=== PATIENT | male | born 1960 | race Two or more races ===

== ENCOUNTER 2024-03-19 07:15 | Day surgery (SDC) | payer OTHER, MEDICAID ==
[2024-03-13 10:34] LABS: Urine Bacteria MANY /hpf (None Seen); Urine Blood Negative /uL (Negative); Urine Clarity Clear (Clear); Urine Color Yellow (Yellow); Urine Mucus FEW (None Seen); Urine Protein, UAD 1+ (Negative); Urine Specific Gravity 1.044 (1.001-1.035); Urine Sperm PRESENT /hpf (None Seen); Urine Urobilinogen 2 mg/dL (Negative); Urine WBC 3 /hpf (0 - 3)
[2024-03-13 10:47] LABS: Basophils # (auto) 0 10 ^3/uL (0-0.2); Basophils % (auto) 0.3 % (0.0-2.0); Eosinophils # (auto) 0.1 10 ^3/uL (0-0.8); Eosinophils % (auto) 1.5 % (0.0-7.0); Hematocrit 48.7 % (41.0-53.0); Hemoglobin 16.2 g/dL (13.5-17.5); Lymphocytes # (auto) 1.7 10 ^3/uL (0.4-5.4); Lymphocytes % (auto) 24.1 % (10.0-50.0); Mean Corpuscular Hemoglobin 28.8 pg (28.0-32.0); Mean Corpuscular Hgb Conc. 33.2 g/dL (32.0-36.0); Mean Corpuscular Volume 86.7 fL (80.0-100.0); Monocytes # (auto) 0.5 10 ^3/uL (0-1.3); Monocytes % (auto) 6.9 % (0.0-12.0); Neutrophils # (auto) 4.6 10 ^3/uL (1.6-8.6); Neutrophils % (auto) 67.2 % (37.0-80.0); Nucleated Red Blood Cells % 0.1 %; Platelet Count (auto) 239 10^3/uL (140-450); Red Blood Cells 5.62 10^6/uL (4.5-5.90); Red Cell Distribution Width 15.8 % (11.8-14.3); White Blood Cell 6.9 10^3/uL (4.4-10.8)
[2024-03-13 11:00] LABS: Prothrombin Time 10.6 sec (9.3-11.8)
[2024-03-13 11:17] LABS: Alanine Aminotransferase 31 U/L (7-40); Alkaline Phosphatase 95 U/L (46-116); Anion Gap 5 (5-15); BUN/Creatinine Ratio 11.6 (10.0-20.0); Blood Urea Nitrogen 14 mg/dL (9-23); Calcium 9.8 mg/dL (8.7-10.4); Carbon Dioxide 28 mmol/L (20-30); Chloride 106 mmol/L (98-107); Glucose 91 mg/dL (74-106); Potassium 4.3 mmol/L (3.5-5.1); Sodium 139 mmol/L (136-145)
[2024-03-13 11:18] LABS: Albumin 4.5 g/dL (3.2-4.8)
[2024-03-13 11:19] LABS: Aspartate Aminotransferase 15 U/L (13-40); Bilirubin, Total 0.4 mg/dL (0.2-1.0); Total Protein 7.5 g/dL (5.7-8.2)
[~2024-03-19] VITALS: Ht 180.3 cm; Wt 72.6 kg
[2024-03-19] MEDS ORDERED: LIDOCAINE W/ EPINEPHRINE 1% 20ML VIAL ONE (07:25)
[2024-03-19] MEDS ORDERED: BUPIVACAINE 0.25% INJ 50ML VIAL ONE (07:26)
[2024-03-19] MEDS ORDERED: ceFAZolin 2 GM/D5W50ml 50 ML IV ONE (07:29)
[2024-03-19] MEDS ORDERED: fentaNYL CITRATE 100 MCG/2 ML VL ONE (07:50)
[2024-03-19] MEDS ORDERED: PROPOFOL 10 MG/ML 20 ML IV ONE (07:50)
[2024-03-19] MEDS ORDERED: ePHEDrine SULFATE 50 MG/ML AMP ONE (08:19)
[2024-03-19] MEDS ORDERED: POVIDONE IODINE 10 % TOPICAL OINT 30GM TOP ONE (08:27)
[2024-03-19] MEDS ORDERED: PHENYLEPHRINE HCL 10 MG/ML VL ONE (08:28)
[2024-03-19] MEDS: LIDOCAINE 1%-Mpf/Epinephrine 1:200,000 30ml VIAL IJ ONE (08:30)
[2024-03-19 08:43] VITALS: PULSE 78; RESP 13; TEMP 98.2; O2SAT 100
[2024-03-19] MEDS ORDERED: ONDANSETRON HCL 4 MG/2 ML VIAL IV ONE (09:00)
[2024-03-19] MEDS ORDERED: MEPERIDINE HCL (25 MG/ML) 1ML VIAL IV PRN (09:00)
[2024-03-19] MEDS ORDERED: HYDROmorphone HCL 2 MG/ML VL/or syr IV PRN (09:00)
[2024-03-19 09:15] VITALS: BP 134/78; PULSE 79; RESP 16; O2SAT 97
== END 2024-03-19 09:25 | disposition home or self-care (01) ==
LOC: SUR 07:15
PROVIDERS: ATTEND Surgery
DX: R22.42 Localized swelling, mass and lump, left lower limb (principal); D17.24 Benign lipomatous neoplasm of skin and subcutaneous tissue of left leg; L91.8 Other hypertrophic disorders of the skin; Z79.899 Other long term (current) drug therapy; Z86.19 Personal history of other infectious and parasitic diseases; Z98.890 Other specified postprocedural states; Z87.891 Personal history of nicotine dependence
CPT/HCPCS: 27337; 36415; 80053; 81001; 85025; 85610; 85730; 88305; J0690; J2371; J2704; J3010; J3490

== ENCOUNTER 2025-03-20 20:39 | Inpatient (IN) | payer OTHER, MEDICAID ==
[~2025-03-20] VITALS: Ht 177.8 cm; Wt 61.2 kg
[2025-03-20 21:44] LABS: Hematocrit 41.7 % (41.0-53.0); Hemoglobin 14.0 g/dL (13.5-17.5); Mean Corpuscular Hemoglobin 29.2 pg (28.0-32.0); Mean Corpuscular Volume 86.9 fL (80.0-100.0); Nucleated Red Blood Cells % 0.0 %
[2025-03-20 21:55] LABS: Chloride 106 mmol/L (98-107); Potassium 4.6 mmol/L (3.5-5.1); Sodium 141 mmol/L (136-145)
[2025-03-20 21:56] LABS: Anion Gap 8 (5-15); Calcium 9.4 mg/dL (8.7-10.4); Carbon Dioxide 27 mmol/L (20-31)
[2025-03-20 22:01] LABS: BUN/Creatinine Ratio 14.7 (10.0-20.0); Blood Urea Nitrogen 16 mg/dL (9-23)
[2025-03-20 22:03] LABS: Glucose 109 mg/dL (74-106)
--- NOTE | 2025-03-20 22:13 | DVH ---
Exam: CT CT AB PEL WO CON-NO ORAL OR IV History: Left-sided nephrostomy tube complication Comparison Study: CT ABD PELVIS WO on DOS: 03/18/25 TECHNIQUE: Multidetector CT of the abdomen and pelvis was performed from lung bases to pubic symphysi s. Imaging was performed without IV contrast. Axial, coronal, and sagittal multiplanar reformats were obtained from the axial data set by the technologist. RADIATION DOSE: CTDI vol 5.11 mGy. DLP 297.78 mGy.cm Findings: Limited evaluation of the solid organs in the absence of IV contrast. Lungs: Presumed surgical clips are seen within the left lower thorax with associated streak artifact. Liver: Unremarkable. Spleen: Unremarkable. Pancreas: Unremarkable. Gallbladder: Decompressed. Adrenals: Unremarkable Kidneys: Atrophic decompressed left kidney with left nephrostomy tube. Right nephrolithiasis. Too sm all to characterize right renal lesion. No hydronephrosis. Pelvic Viscera: Prostatomegaly. Vasculature: Mild atherosclerotic vascular calcifications. Retroperitoneum: Unremarkable. Bowel: No bowel obstruction. No CT evidence of appendicitis. Musculoskeletal: Unremarkable. Soft tissues: Unremarkable Impression: 1. Atrophic decompressed left kidney with left nephrostomy tube, comparison with prior outside imagin g is suggested in assessing interval change in appearance. 2. Incidental findings as detailed.
--- NOTE | 2025-03-20 22:28 | ED.PDOC ---
History of Present Illness HPI Comments This patient is a 64-year-old male who arrives the ED today for evaluation of left-sided nephrostomy tube that was placed at this facility due to kidney stone concern per patient. Patient states he has not been able to come to the facility for removal. Patient states he attempted to come today but was sent to the ED for evaluation. Patient denies any fever nausea or vomiting, but states he has got significant pain at the site. Patient states that his left-sided kidney is nonfunctioning per information from the specialist. Vital signs were stable on arrival. Chief Complaint: Tube Replacement Time Seen by MD: 20:44 Reviewed Notes: Nurses Notes Allergies: Coded Allergies: NO KNOWN ALLERGIES (Unverified , 03/13/24) Home Meds No Active Prescriptions or Reported Meds Information Source: Patient Mode of Arrival: Ambulatory Severity: Moderate Timing: Days Duration: Since onset Prehospital treatment: None Past Medical History PAST MEDICAL HISTORY: Kidney Stones Surgical History: Denies all surgeries Surgical History (Other): Left-sided nephrostomy tube in place Family History Family History: Reviewed,noncontributory to illness, No family hx of Cancer, No family hx of DM, No family hx of Heart yamileth, No family hx of HTN, No family hx ofKidney yamileth, No family hx of Liver yamileth, No family hx of Lung yamileth, No family hx of Stroke Social History Smoker: Non-Smoker Alcohol: Denies ETOH Use Drugs: Denies Drug Use Lives In: Home Constitutional: denies: chills, diaphoresis, fatigue, fever, malaise, sweats, weakness, others EENTM: denies: blurred vision, double vision, ear bleeding, ear discharge, ear drainage, ear pain, ear ringing, eye pain, eye redness, hearing loss, mouth pain, mouth swelling, nasal discharge, nose bleeding, nose congestion, nose pain, photophobia, tearing, throat pain, throat swelling, voice changes, others Respiratory: denies: cough, hemoptysis, orthopnea, SOB at rest, shortness of breath, SOB with excertion, stridor, wheezing, others Cardiovascular: denies: chest pain, dizzy spells, diaphoresis, Dyspnea on exertion, edema, irregular heart beat, left arm pain, lightheadedness, palpitations, PND, syncope, others Gastrointestinal: denies: abdomen distended, abdominal pain, blood streaked bowels, constipated, diarrhea, dysphagia, difficulty swallowing, hematemesis, melena, nausea, poor appetite, poor fluid intake, rectal bleeding, rectal pain, vomiting, others Genitourinary: denies: burning, dysuria, flank pain, frequency, hematuria, incontinence, penile discharge, penile sore, pain, testicle pain, testicle swelling, urgency, others Neurological: denies: dizziness, fainting, headache, left sided numbness, left sided weakness, numbness, paresthesia, pre-existing deficit, right sided numbness, right sided weakness, seizure, speech problems, tingling, tremors, weakness, others Musculoskeletal: reports: others (Left-sided nephrostomy in place); denies: back pain, gout, joint pain, joint swelling, muscle pain, muscle stiffness, neck pain Integumetry: denies: bruises, change in color, change in hair/nails, dryness, laceration, lesions, lumps, rash, wounds, others Allergic/Immunocompromised: denies: Difficulty Healing, Frequent Infections, Hives, Itching, others Hematologic/Lymphatic: denies: anemia, blood clots, easy bleeding, easy br uising, swollen glands, others Endocrine: denies: excessive hunger, excessive sweating, excessive thirst, excessive urination, flushing, intolerance to cold, intolerance to heat, unexplained weight gain, unexplained weight loss, others Psychiatric: denies: anxiety, bipolar disorder, depression, hopeless, panic disorder, schizophrenia, sleepless, suicidal, others Physical Exam General Appearance: Moderate Distress (Due to pain related to his nephrostomy.), Normal HEENT: Normal ENT Inspection, Pharynx Normal, TMs Normal Neck: Full Range of Motion, Non-Tender, Normal, Normal Inspection Respiratory: Chest Non-Tender, Lungs Clear, No Accessory Muscle Use, No Respiratory Distress, Normal Breath Sounds Cardiovascular: No Edema, No JVD, No Murmur, No Gallop, Normal Peripheral Pulses, Regular Rate/Rhythm Breast Exam: Deferred Gastrointestinal: Non Tender, No Pulsatile Mass, Normal Bowel Sounds, Soft, Other (A somewhat dirty and ecchymotic left-sided nephrostomy tube is noted. Can not confirm proper placement. Wound has some bleeding noted.) Genitalia: Deferred Pelvic: Deferred Rectal: Deferred Extremities: No calf tenderness, Normal capillary refill, Normal inspection, Normal range of motion, Non-tender, No pedal edema Neurologic: Alert, No Motor Deficits, Normal Affect, Normal Mood, No Sensory Deficits Cerebellar Function: NOT DONE Reflexes: NOT DONE Skin: Dry, Normal Color, Warm Lymphatic: No Adenopathy Was a procedure done? Was a procedure done?: No Differential Dx Considerations may include: Sepsis, electrolyte abnormality, nephrostomy complication, renal disease X-Ray, Labs, Meds, VS Vital Signs Date Time Temp Pulse Resp B/P (MAP) Pulse Ox O2 Delivery O2 Flow Rate FiO2 03/20/25 20:40 98.8 118 16 124/79 96 98.8 Lab Test 03/20/25 21:34 Range/Units White Blood Count 9.7 4.4-10.8 10^3/uL Red Blood Count 4.80 4.5-5.90 10^6/uL Hemoglobin 14.0 13.5-17.5 g/dL Hematocrit 41.7 41.0-53.0 % Mean Corpuscular Volume 86.9 80.0-100.0 fL Mean Corpuscular Hemoglobin 29.2 28.0-32.0 pg Mean Corpuscular Hemoglobin Concent 33.6 32.0-36.0 g/dL Red Cell Distribution Width 16.0 H 11.8-14.3 % Platelet Count 252 140-450 10^3/uL Mean Platelet Volume 7.0 6.9-10.8 fL Neutrophils (%) (Auto) 79.4 37.0-80.0 % Lymphocytes (%) (Auto) 10.1 10.0-50.0 % Monocytes (%) (Auto) 8.9 0.0-12.0 % Eosinophils (%) (Auto) 1.4 0.0-7.0 % Basophils (%) (Auto) 0.2 0.0-2.0 % Neutrophils # (Auto) 7.7 1.6-8.6 10 ^3/uL Lymphocytes # (Auto) 1.0 0.4-5.4 10 ^3/uL Monocytes # (Auto) 0.9 0-1.3 10 ^3/uL Eosinophils # (Auto) 0.1 0-0.8 10 ^3/uL Basophils # (Auto) 0 0-0.2 10 ^3/uL Nucleated Red Blood Cells 0.0 % Sodium Level 141 136-145 mmol/L Potassium Level 4.6 3.5-5.1 mmol/L Chloride Level 106 98-107 mmol/L Carbon Dioxide Level 27 20-31 mmol/L Anion Gap 8 5-15 Blood Urea Nitrogen 16 9-23 mg/dL Creatinine 1.09 0.700-1.30 mg/dL Glomerular Filtration Rate Calc 75 >90 mL/min BUN/Creatinine Ratio 14.7 10.0-20.0 Serum Glucose 109 H 74-106 mg/dL Calcium Level 9.4 8.7-10.4 mg/dL X-Ray, Labs, Meds, VS Comment All studies performed the ED were evaluated by me personally. Laboratories were unremarkable for any systemic concerns. CT confirmed a atrophic left-sided kidney with nephrostomy placement. Patient will need to be evaluated by Nephrology for tube removal and any future plans related to his nonfunctioning left kidney. Time of 1ST Reevaluation: 22:26 Reevaluation 1ST: Improved Consultation: PCP, Other (Nephrology) Patient Education/Counseling: Diagnosis, Treatment Family Education/Counseling: Diagnosis, Treatment SEPSIS Sepsis Screen Date sepsis recognized/suspect: Mar 20, 2025 Time Sepsis recognized/suspect: 2041 Recent Procedure: Yes On Antibiotic Therapy: No Respiratory Rate >20: No Heart Rate >90: Yes Temp<36 C (96.8 F) or >38.3 C: No SBP <90 or MAP <65 mmHG: No New Acute Mental Status Change: No Is the patient on CPAP, BIPAP,: No Physician Orders Ct Ab Pel Wo Con-No Oral Or Iv (03/20/25 21:27) Vital Signs Date Time Temp Pulse Resp B/P (MAP) Pulse Ox O2 Delivery O2 Flow Rate FiO2 03/20/25 20:40 98.8 118 16 124/79 96 98.8 Laboratory Tests Test 03/20/25 21:34 White Blood Count 9.7 10^3/uL (4.4-10.8) Departure 1 Departure Time of Disposition: 22:27 Impression: Primary Impression: Postoperative complication Additional Impression: Postoperative pain Disposition: ADMITTED INPATIENT Condition: Stable e-Prescriptions No Active Prescriptions or Reported Meds Discharged With: Self Critical Care Note Critical Care Time?: No Stability Stability form required: No Heart Score Heart Score: Heart Score Response (Comments) Value History N/A 0 EKG N/A 0 Age N/A 0 Risk Factors N/A 0 Troponin N/A 0 Total 0 JUAN FRANCISCO COLUNGA PAC Mar 20, 2025 22:28
[2025-03-20] MEDS ORDERED: ONDANSETRON HCL 4 MG/2 ML VIAL IV PRN (23:30)
[2025-03-20] MEDS ORDERED: DOCUSATE SOD 100 MG CAP PO PRN (23:30)
[2025-03-20] MEDS ORDERED: MORPHINE SULFATE INJ 2 MG/ml SYRG IV PRN (23:30)
[2025-03-20] MEDS ORDERED: NITROGLYCERIN 0.4 MG SL TAB SL PRN (23:30)
--- NOTE | 2025-03-20 23:31 | DVHHP2 ---
History of Present Illness Reason for Visit: Postoperative complication History of Present Illness The patient is a 64-year-old male with past medical history of kidney stone who presented to [facility] ED for evaluation of left-sided nephrostomy tube that was placed at this facility due to kidney stones. Patient reports he has not been able to come to the facility for removal, but he attempted to come today but was sent to the ED for evaluation. Patient states that his left-sided kidney is nonfunctioning per information from the specialist. Patient denies any fever nausea or vomiting, but states he has got significant pain at the site. Patient was seen and evaluated in the ED, laboratory data shows WBC 9.7, platelets 252, sodium 141, potassium 4.6, BUN 16, creatinine 1.09, glucose 109, calcium 9.4, blood pressure 124/74, heart rate 118, temperature 98.8 F, O2 saturation 96% on room air. Abdomen/pelvis CT revealing atrophic decompressed left kidney with left nephrotomy tube. Please see medication orders section in the computer. On my assessment, patient denied chest pain, no headache, no dizziness, no diaphoresis, no shortness of breaths, no nausea, no vomiting, no fever, no chills. Patient was admitted for further evaluation and medical management. Past Medical History Kidney Stones Past Surgical History Left-sided nephrostomy tube in place Family History Reviewed, noncontributory to the management of this case. Past Social History The patient lives at home, denies smoking, alcohol or illicit drugs abuse. Review of Systems Constitutional: Yes: Weakness; No: Fever, Chills, Sweats, Malaise, Other Eyes: No: Pain, Vision change, Conjunctivae inflammation, Eyelid inflammation, Other, Redness ENT: No: Ear pain, Ear discharge, Nose pain, Nose discharge, Nose congestion, Mouth pain, Mouth swelling, Throat pain, Throat swelling, Other Respiratory: No: Cough, Dry, Shortness of breath, SOB with excertion, Wheezing, Hemoptysis, Pleuritic Pain, Sputum, Wheezing, Other Cardiovascular: No: Chest Pain, Palpitations, Orthopnea, Paroxysmal Noc. Dyspnea, Edema, Lt Headedness, Other Gastrointestinal: No: Nausea, Vomiting, Abdominal Pain, Diarrhea, Constipation, Melena, Hematochezia, Other Genitourinary: No Dysuria, No Frequency, No Incontinence, No Hematuria, No Retention; Other (Left-sided nephrostomy in place) Musculoskeletal: No: other, neck pain, shoulder pain, arm pain, back pain, hand pain, leg pain, foot pain Skin: No: Rash, Lesions, Jaundice, Bruising, Other Neurological: No: Weakness, Numbness, Incoordination, Change in speech, Confusion, Seizures, Other Allergies: Coded Allergies: NO KNOWN ALLERGIES (Unverified , 03/13/24) Exam Vital Signs Vital Signs Date Time Temp Pulse Resp B/P (MAP) Pulse Ox O2 Delivery O2 Flow Rate FiO2 03/20/25 20:40 98.8 118 16 124/79 96 98.8 General Appearance: Alert, Oriented X3, Cooperative, No acute distress HEENT: Atraumatic, PERRLA, EOMI, Mucous membr. moist/pink Respiratory: Normal air movement Cardiovascular: Regular rate, Normal S1, Normal S2, No murmurs Abdominal: Normal bowel sounds, Soft, No tenderness, No hepatospenomegaly, No masses Extremities: No clubbing, No cyanosis, No edema, Normal pulses, No tenderness/swelling Skin: No rashes, No breakdown, No significant lesion Neuro: Normal speech, Normal tone, Sensation intact, Cranial nerves 3-12 NL, Reflexes 2+, Other (Generalized weakness) Psych/Mental Status: Mental status NL, Mood NL Labs/Xrays Labs Test 03/20/25 21:34 Range/Units White Blood Count 9.7 4.4-10.8 10^3/uL Red Blood Count 4.80 4.5-5.90 10^6/uL Hemoglobin 14.0 13.5-17.5 g/dL Hematocrit 41.7 41.0-53.0 % Mean Corpuscular Volume 86.9 80.0-100.0 fL Mean Corpuscular Hemoglobin 29.2 28.0-32.0 pg Mean Corpuscular Hemoglobin Concent 33.6 32.0-36.0 g/dL Red Cell Distribution Width 16.0 H 11.8-14.3 % Platelet Count 252 140-450 10^3/uL Mean Platelet Volume 7.0 6.9-10.8 fL Neutrophils (%) (Auto) 79.4 37.0-80.0 % Lymphocytes (%) (Auto) 10.1 10.0-50.0 % Monocytes (%) (Auto) 8.9 0.0-12.0 % Eosinophils (%) (Auto) 1.4 0.0-7.0 % Basophils (%) (Auto) 0.2 0.0-2.0 % Neutrophils # (Auto) 7.7 1.6-8.6 10 ^3/uL Lymphocytes # (Auto) 1.0 0.4-5.4 10 ^3/uL Monocytes # (Auto) 0.9 0-1.3 10 ^3/uL Eosinophils # (Auto) 0.1 0-0.8 10 ^3/uL Basophils # (Auto) 0 0-0.2 10 ^3/uL Nucleated Red Blood Cells 0.0 % Sodium Level 141 136-145 mmol/L Potassium Level 4.6 3.5-5.1 mmol/L Chloride Level 106 98-107 mmol/L Carbon Dioxide Level 27 20-31 mmol/L Anion Gap 8 5-15 Blood Urea Nitrogen 16 9-23 mg/dL Creatinine 1.09 0.700-1.30 mg/dL Glomerular Filtration Rate Calc 75 >90 mL/min BUN/Creatinine Ratio 14.7 10.0-20.0 Serum Glucose 109 H 74-106 mg/dL Calcium Level 9.4 8.7-10.4 mg/dL PATIENT: ANDREA BYRD ACCT: [id number] UNIT: [id number] : 1960 LOC: ER ROOM / BED: / AGE / SEX: 64 / M ADM STATUS: REG ER SERVICE 26 ORDERING PHYSICIAN: JUAN FRANCISCO COLUNGA PAC PROCEDURE(s): ABPL - CT AB PEL WO CON-NO ORAL OR IV REASON: Left-sided nephrostomy tube complication ORDER NUMBER(s): [id number], ACCESSION NUMBER(s): [id number] Exam: CT CT AB PEL WO CON-NO ORAL OR IV History: Left-sided nephrostomy tube complication Comparison Study: CT ABD PELVIS WO on DOS: 03/18/25 TECHNIQUE: Multidetector CT of the abdomen and pelvis was performed from lung bases to pubic symphysis. Imaging was performed without IV contrast. Axial, c oronal, and sagittal multiplanar reformats were obtained from the axial data set by the technologist. RADIATION DOSE: CTDI vol 5.11 mGy. DLP 297.78 mGy.cm Findings: Limited evaluation of the solid organs in the absence of IV contrast. Lungs: Presumed surgical clips are seen within the left lower thorax with associated streak artifact. Liver: Unremarkable. Spleen: Unremarkable. Pancreas: Unremarkable. Gallbladder: Decompressed. Adrenals: Unremarkable Kidneys: Atrophic decompressed left kidney with left nephrostomy tube. Right nephrolithiasis. Too small to characterize right renal lesion. No hydronephrosis. Pelvic Viscera: Prostatomegaly. Vasculature: Mild atherosclerotic vascular calcifications. Retroperitoneum: Unremarkable. Bowel: No bowel obstruction. No CT evidence of appendicitis. Musculoskeletal: Unremarkable. Soft tissues: Unremarkable Impression: 1. Atrophic decompressed left kidney with left nephrostomy tube, comparison with prior outside imaging is suggested in assessing interval change in appearance. 2. Incidental findings as detailed. SEPSIS Sepsis Screen Date sepsis recognized/suspect: Mar 20, 2025 Time Sepsis recognized/suspect: 2041 Recent Procedure: Yes On Antibiotic Therapy: No Respiratory Rate >20: No Heart Rate >90: Yes Temp<36 C (96.8 F) or >38.3 C: No SBP <90 or MAP <65 mmHG: No New Acute Mental Status Change: No Is the patient on CPAP, BIPAP,: No Physician Orders Ct Ab Pel Wo Con-No Oral Or Iv (03/20/25 21:27) Admit (03/20/25 23:26) Allergies (03/20/25 23:) Code Status (03/20/25:26) Sodium Chloride Lock (Saline Lock Ns) (03/21/25 06:00) Oxygen Per Hour (03/20/25 23:26) Hydrocodone-Acet 5/325mg Tab ([place] 5/32 (03/20/25 23:30) Ondansetron Hcl (Zofran) (03/20/25 23:30) Docusate Sodium Capsule (Colace Capsule) (03/20/25 23:30) Complete Blood Count (03/21/25 04:00) Comprehensive Metabolic Panel (03/21/25 04:00) Cardiac Diet-2gna,Lofat,Lochol (03/21/25 Breakfast) Condition: Serious (03/20/25 23:26) Acetaminophen Tablet (Tylenol Tablet) (03/20/25 23:30) Bedrest With Bathroom Privileg (03/20/25 23:26) Sequential Compression Device (03/20/25 ) Nitroglycerin Sublingual (Ntrostat Subli (03/20/25 23:30) Morphine Sulfate Injection (03/20/25 23:30) Notify Of Changes From Base (03/20/25 23:26) Emergency Dysrhythmia Protocol (03/20/25 23:26) Oxygen By Nasal Cannula (03/20/25 23:26) Vital Signs Date Time Temp Pulse Resp B/P (MAP) Pulse Ox O2 Delivery O2 Flow Rate FiO2 03/20/25 20:40 98.8 118 16 124/79 96 98.8 Laboratory Tests Test 03/20/25 21:34 White Blood Count 9.7 10^3/uL (4.4-10.8) Assessment/Plan Assessment/Plan Atrophic kidney Postoperative pain Postoperative complication Plan 1. Admit to med surge unit 2. Breathing treatment 3. Pain control management 4. Management of fluids and electrolytes 5. Consultation for Nephrology 6. Diagnostic tests abdomen/pelvis CT 7. DVT prophylaxis-on SCDs 8. Repeat labs CBC, CMP in a.m. 9. Continue with current medical management 10. Treatment plan discussed with patient and RN. Patient verbalized understanding. Plan discussed with: Patient, Other (RN) My Orders Orders - MORENO SALINAS DNP Procedure Category Date Status Time Admit ADMIT 03/20/25 Verified 23:26 Allergies JAIMEE 03/20/25 Verified 23:26 Code Status CODE 03/20/25 Verified 23:26 Sodium Chloride Lock PHA 03/21/25 Verified (Saline Lock Ns) 06:00 Oxygen Per Hour RT 03/20/25 Verified 23:26 Hydrocodone-Acet PHA 03/20/25 Verified 5/325mg Tab ([place] 23:30 Ondansetron Hcl PHA 03/20/25 Verified (Zofran) 23:30 Docusate Sodium PHA 03/20/25 Verified Capsule (Colace 23:30 Complete Blood Count LAB 03/21/25 Verified 04:00 Comprehensive LAB 03/21/25 Verified Metabolic Panel 04:00 Cardiac DIET 03/21/25 Verified Diet-2gna,Lofat,Lochol Breakfast Condition: Serious JAIMEE 03/20/25 Verified 23:26 Acetaminophen Tablet PHA 03/20/25 Verified (Tylenol Tablet) 23:30 Bedrest With Bathroom [facility] 03/20/25 Verified Privileg 23:26 Sequential [facility] 03/20/25 Verified Compression Device Nitroglycerin [facility] 03/20/25 Verified Sublingual (Ntrostat 23:30 Morphine Sulfate [facility] 03/20/25 Verified Injection 23:30 Notify Md Of Changes [facility] 03/20/25 Verified From Base 23:26 Emergency Dysrhythmia [facility] 03/20/25 Verified Protocol 23:26 Oxygen By Nasal RT 03/20/25 Verified Cannula 23:26 Problem List: (1) Atrophic kidney (2) Postoperative pain (3) Postoperative complication Date of Service: Mar 20, 2025 Billing Provider: MORENO SALINAS DNP Common Visit Codes: [id number] INP/OBS CARE (HIGH) MORENO SALINAS DNP Mar 20, 2025 23:31
[2025-03-21] VITALS (8 sets, daily range): BP systolic 108–136; BP diastolic 65–85; PULSE 72–113; RESP 16–22; TEMP 97.9–100.5; O2SAT 94–98
[2025-03-21] MEDS: MORPHINE SULFATE 4 MG/ML SYR/VIAL IV ONE (02:45)
[2025-03-21] MEDS: SODIUM CHLOR 0.9% PF (SALINE LOCK) 10ML VIAL/SYR IV SCH (05:38)
[2025-03-21 06:18] LABS: COVID19 ANTIGEN SOFIA FIA POSITIVE (NEGATIVE)
[2025-03-21] MEDS: HYDROcodone-ACET 5/325MG TAB PO PRN (07:08)
[2025-03-21 07:46] LABS: Hematocrit 40.3 % (41.0-53.0); Hemoglobin 13.7 g/dL (13.5-17.5); Mean Corpuscular Hemoglobin 29.3 pg (28.0-32.0); Mean Corpuscular Volume 86.3 fL (80.0-100.0); Nucleated Red Blood Cells % 0.1 %
[2025-03-21 08:07] LABS: Albumin 4.3 g/dL (3.2-4.8); Alkaline Phosphatase 105 U/L (46-116); Anion Gap 9 (5-15); BUN/Creatinine Ratio 13.1 (10.0-20.0); Blood Urea Nitrogen 13 mg/dL (9-23); Calcium 9.9 mg/dL (8.7-10.4); Carbon Dioxide 28 mmol/L (20-31); Chloride 102 mmol/L (98-107); Glucose 94 mg/dL (74-106); Potassium 4.2 mmol/L (3.5-5.1); Sodium 139 mmol/L (136-145); Total Protein 7.3 g/dL (5.7-8.2)
[2025-03-21 08:08] LABS: Bilirubin, Total 0.6 mg/dL (0.2-1.0)
[2025-03-21 08:13] LABS: Alanine Aminotransferase 41 U/L (7-40)
--- NOTE | 2025-03-21 12:31 | DVHPN2 ---
Reviewed: Care Plan, H&P, Labs, Medications, Previous Orders, Radiology Changes from previous H/P or p: No Changes Eyes: No Pain, No Vision change, No Conjunctivae inflammation, No Eyelid inflammation, No Other, No Redness ENT: No Ear pain, No Ear discharge, No Nose pain, No Nose discharge, No Nose congestion, No Mouth pain, No Mouth swelling, No Throat pain, No Throat swelling, No Other Cardiovascular: No Chest Pain, No Palpitations, No Orthopnea, No Paroxysmal Noc. Dyspnea, No Edema, No Lt Headedness, No Other Respiratory: No Cough, No Dry, No Shortness of breath, No SOB with excertion, No Wheezing, No Hemoptysis, No Pleuritic Pain, No Sputum, No Other Gastrointestinal: No Nausea, No Vomiting, No Abdominal Pain, No Diarrhea, No Constipation, No Melena, No Hematochezia, No Other Genitourinary: No Dysuria, No Frequency, No Incontinence, No Hematuria, No Retention; Other (Left-sided nephrostomy in place) Musculoskeletal: No other, No neck pain, No shoulder pain, No arm pain, No back pain, No hand pain, No leg pain, No foot pain Skin: No Rash, No Lesions, No Jaundice, No Bruising, No Other Objective Vitals Vital Signs Date Time Temp Pulse Resp B/P (MAP) Pulse Ox O2 Delivery O2 Flow Rate FiO2 03/21/25 09:00 100.1 104 16 117/77 (90) 95 100.1 03/21/25 03:33 Room Air* 0 21 Intake/Output Intake and Output 03/21/25 07:00 Intake Total 240 ml Output Total 50 ml Balance 190 ml Intake Oral 240 ml Output Urine Total 50 ml Medications Current Medications Medications Dose Ordered Sig/Lionel Route Start Time Stop Time Status Last Admin Dose Admin Sodium Chloride 10 ml Q8HR IV 03/21/25 06:00 03/21/25 05:38 10 ML Acetaminophen/ Hydrocodone Bitart 1 tab Q4HP PRN PO 03/20/25 23:30 03/21/25 07:08 1 TAB Ondansetron HCl 4 mg Q4HP PRN IV 03/20/25 23:30 Docusate Sodium 100 mg BIDPRN PRN PO 03/20/25 23:30 Acetaminophen 650 mg Q6HP PRN PO 03/20/25 23:30 Nitroglycerin 0.4 mg Q5MINP PRN SL 03/20/25 23:30 Morphine Sulfate 2 mg Q30M PRN IV 03/20/25 23:30 Laboratory Results Laboratory Tests 03/21/25 06:58 Chemistry Test 03/20/25 21:34 03/21/25 06:58 Calcium Level 9.4 mg/dL (8.7-10.4) 9.9 mg/dL (8.7-10.4) Albumin 4.3 g/dL (3.2-4.8) Total Protein 7.3 g/dL (5.7-8.2) LFT Test 03/21/25 06:58 Alanine Aminotransferase (ALT) 41 U/L (7-40) H Alkaline Phosphatase 105 U/L (46-116) Aspartate Amino Transferase (AST) 25 U/L (13-40) Total Bilirubin 0.6 mg/dL (0.2-1.0) Labs and/or images reviewed: Labs reviewed by me, Image(s) reviewed by me Assessment/Plan Assessment/Plan Atrophic left kidney Postoperative pain Postoperative complication Status post left nephrostomy tube Possible infection at the nephrostomy tube placement site: Urology consult by Dr. Mcmillan Possible UTI: Urine cultures Rocephin Plan discussed with: Patient Date of Service: Mar 21, 2025 Billing Provider: GALE FAJARDO MD Common Visit Codes: [id number] INP/OBS CARE(HIGH) GALE FAJARDO MD Mar 21, 2025 12:31
[2025-03-21 13:59] LABS: Urine Protein, UAD 2+ (Negative); Urine WBC Clumps PRESENT /hpf (None Seen)
[2025-03-21] MEDS: STERILE WATER 10 ML ONE (16:12)
[2025-03-22 05:00] VITALS: BP 108/67; PULSE 98; RESP 18; TEMP 98.4; O2SAT 95
[2025-03-22 08:00] VITALS: PULSE 98; RESP 18; O2SAT 95
[2025-03-22 08:04] LABS: COVID19 ANTIGEN SOFIA FIA NEGATIVE (NEGATIVE)
--- NOTE | 2025-03-22 08:10 | DVHPN2 ---
Reviewed: Care Plan, H&P, Labs, Medications, Previous Orders, Radiology Changes from previous H/P or p: No Changes Eyes: No Pain, No Vision change, No Conjunctivae inflammation, No Eyelid inflammation, No Other, No Redness ENT: No Ear pain, No Ear discharge, No Nose pain, No Nose discharge, No Nose congestion, No Mouth pain, No Mouth swelling, No Throat pain, No Throat swelling, No Other Cardiovascular: No Chest Pain, No Palpitations, No Orthopnea, No Paroxysmal Noc. Dyspnea, No Edema, No Lt Headedness, No Other Respiratory: No Cough, No Dry, No Shortness of breath, No SOB with excertion, No Wheezing, No Hemoptysis, No Pleuritic Pain, No Sputum, No Other Gastrointestinal: No Nausea, No Vomiting, No Abdominal Pain, No Diarrhea, No Constipation, No Melena, No Hematochezia, No Other Genitourinary: No Dysuria, No Frequency, No Incontinence, No Hematuria, No Retention; Other (Left-sided nephrostomy in place) Musculoskeletal: No other, No neck pain, No shoulder pain, No arm pain, No back pain, No hand pain, No leg pain, No foot pain Skin: No Rash, No Lesions, No Jaundice, No Bruising, No Other Objective Vitals Vital Signs Date Time Temp Pulse Resp B/P (MAP) Pulse Ox O2 Delivery O2 Flow Rate FiO2 03/22/25 05:00 98.4 98 18 108/67 (81) 95 98.4 03/21/25 20:00 Room Air* 0 21 Intake/Output Intake and Output 03/22/25 07:00 Intake Total 1900 ml Output Total 1000 ml Balance 900 ml Intake Oral 1900 ml Output Urine Total 1000 ml # Voids 2 Medications Current Medications Medications Dose Ordered Sig/Lionel Route Start Time Stop Time Status Last Admin Dose Admin Sodium Chloride 10 ml Q8HR IV 03/21/25 06:00 03/22/25 05:21 10 ML Acetaminophen/ Hydrocodone Bitart 1 tab Q4HP PRN PO 03/20/25 23:30 03/22/25 03:52 1 TAB Ondansetron HCl 4 mg Q4HP PRN IV 03/20/25 23:30 Docusate Sodium 100 mg BIDPRN PRN PO 03/20/25 23:30 Acetaminophen 650 mg Q6HP PRN PO 03/20/25 23:30 Nitroglycerin 0.4 mg Q5MINP PRN SL 03/20/25 23:30 Morphine Sulfate 2 mg Q30M PRN IV 03/20/25 23:30 Ceftriaxone Sodium 50 ml @ 100 mls/hr DAILY@09 IV 03/22/25 09:00 Laboratory Results Laboratory Tests 03/21/25 06:58 Urinalysis Test 03/21/25 13:13 Urine Color Brown (Yellow) H Urine Clarity Ex.turbid (Clear) Urine pH 7.5 (5.0-9.0) Urine Specific [place] 1.029 (1.001-1.035) Urine Protein 2+ (Negative) H Urine Ketones Negative (Negative) Urine Blood 3+ /uL (Negative) H Urine Nitrite Negative (Negative) Urine Bilirubin Negative (Negative) Urine Urobilinogen Normal mg/dL (Negative) Urine Leukocyte Esterase 2+ /uL (Negative) Urine RBC 1914 /hpf (0 - 3) Urine WBC Clumps Present /hpf (None Seen) Urine Microscopic WBC 767 /HPF (0-3) H Urine Squamous Epithelial Cells Few /hpf (<5) Urine Bacteria None seen /hpf (None Seen) Urine Mucus Few (None Seen) Urine Glucose Normal mg/dL (Normal) Labs and/or images reviewed: Labs reviewed by me, Image(s) reviewed by me Assessment/Plan Assessment/Plan Atrophic left kidney Status post left nephrostomy tube Possible infection at the nephrostomy tube placement site: Urology consult by Dr. Garcia Possible UTI: Urine cultures, continue Rocephin Plan discussed with: Patient My Orders Orders - GALE FAJARDO MD Procedure Category Date Status Time Urine Bacterial ZULEIKA 03/21/25 In Process Culture 12:31 Ceftriaxone 1gm/50ml PHA 03/22/25 In Process (Rocephin) 09:00 * Urology Consult CONS 03/21/25 Transmitted 12:54 Date of Service: Mar 22, 2025 Billing Provider: GALE FAJARDO MD Common Visit Codes: [id number] INP/OBS CARE(HIGH) GALE FAJARDO MD Mar 22, 2025 08:10
[2025-03-22 09:04] VITALS: BP 103/64; PULSE 92; RESP 16; TEMP 97.6; O2SAT 97
[2025-03-22 12:30] VITALS: BP 105/64; PULSE 87; RESP 16; O2SAT 97
[2025-03-22 16:59] VITALS: BP 104/63; PULSE 85; RESP 16; TEMP 97.8; O2SAT 98
[2025-03-22 21:00] VITALS: BP 93/60; PULSE 88; RESP 15; TEMP 97.6; O2SAT 96
[2025-03-22] MEDS: ACETAMINOPHEN 325 MG TAB PO PRN (22:01)
[2025-03-23] VITALS (8 sets, daily range): BP systolic 100–113; BP diastolic 60–80; PULSE 69–84; RESP 17–19; TEMP 97.6–98.3; O2SAT 95–98
--- NOTE | 2025-03-23 09:45 | DVHPN2 ---
Reviewed: Care Plan, H&P, Labs, Medications, Previous Orders, Radiology Changes from previous H/P or p: No Changes Eyes: No Pain, No Vision change, No Conjunctivae inflammation, No Eyelid inflammation, No Other, No Redness ENT: No Ear pain, No Ear discharge, No Nose pain, No Nose discharge, No Nose congestion, No Mouth pain, No Mouth swelling, No Throat pain, No Throat swelling, No Other Cardiovascular: No Chest Pain, No Palpitations, No Orthopnea, No Paroxysmal Noc. Dyspnea, No Edema, No Lt Headedness, No Other Respiratory: No Cough, No Dry, No Shortness of breath, No SOB with excertion, No Wheezing, No Hemoptysis, No Pleuritic Pain, No Sputum, No Other Gastrointestinal: No Nausea, No Vomiting, No Abdominal Pain, No Diarrhea, No Constipation, No Melena, No Hematochezia, No Other Genitourinary: No Dysuria, No Frequency, No Incontinence, No Hematuria, No Retention; Other (Left-sided nephrostomy in place) Musculoskeletal: No other, No neck pain, No shoulder pain, No arm pain, No back pain, No hand pain, No leg pain, No foot pain Skin: No Rash, No Lesions, No Jaundice, No Bruising, No Other Objective Vitals Vital Signs Date Time Temp Pulse Resp B/P (MAP) Pulse Ox O2 Delivery O2 Flow Rate FiO2 03/23/25 08:33 98.3 72 17 106/80 (89) 96 98.3 03/22/25 20:00 Room Air* 0 21 Intake/Output Intake and Output 03/23/25 07:00 Intake Total 1940 ml Balance 1940 ml Intake Oral 1840 ml IV Total 100 ml # Voids 7 # Bowel Movements 1 Medications Current Medications Medications Dose Ordered Sig/Lionel Route Start Time Stop Time Status Last Admin Dose Admin Sodium Chloride 10 ml Q8HR IV 03/21/25 06:00 03/23/25 06:01 10 ML Acetaminophen/ Hydrocodone Bitart 1 tab Q4HP PRN PO 03/20/25 23:30 03/23/25 06:01 1 TAB Ondansetron HCl 4 mg Q4HP PRN IV 03/20/25 23:30 Docusate Sodium 100 mg BIDPRN PRN PO 03/20/25 23:30 Acetaminophen 650 mg Q6HP PRN PO 03/20/25 23:30 03/23/25 04:16 650 MG Nitroglycerin 0.4 mg Q5MINP PRN SL 03/20/25 23:30 Morphine Sulfate 2 mg Q30M PRN IV 03/20/25 23:30 Ceftriaxone Sodium 50 ml @ 100 mls/hr DAILY@09 IV 03/22/25 09:00 03/22/25 09:53 100 MLS/HR Laboratory Results Laboratory Tests 03/21/25 06:58 Urinalysis Test 03/21/25 13:13 Urine Color Brown (Yellow) H Urine Clarity Ex.turbid (Clear) Urine pH 7.5 (5.0-9.0) Urine Specific [place] 1.029 (1.001-1.035) Urine Protein 2+ (Negative) H Urine Ketones Negative (Negative) Urine Blood 3+ /uL (Negative) H Urine Nitrite Negative (Negative) Urine Bilirubin Negative (Negative) Urine Urobilinogen Normal mg/dL (Negative) Urine Leukocyte Esterase 2+ /uL (Negative) Urine RBC 1914 /hpf (0 - 3) Urine WBC Clumps Present /hpf (None Seen) Urine Microscopic WBC 767 /HPF (0-3) H Urine Squamous Epithelial Cells Few /hpf (<5) Urine Bacteria None seen /hpf (None Seen) Urine Mucus Few (None Seen) Urine Glucose Normal mg/dL (Normal) Microbiology Microbiology Date/Time Source Procedure Growth Status 03/21/25 13:13 Voided Urine Urine Culture - Final Complete Labs and/or images reviewed: Labs reviewed by me, Image(s) reviewed by me Assessment/Plan Assessment/Plan Atrophic left kidney Status post left nephrostomy tube Possible infection at the nephrostomy tube placement site: Urology consult by Dr. Hipolito castillo, Dr. Garcia could not see the patient on the weekend. Possible UTI: Urine cultures, continue Rocephin Plan discussed with: Patient My Orders Orders - GALE FAJARDO MD Procedure Category Date Status Time * Urology Consult CONS 03/23/25 Verified 09:37 Date of Service: Mar 23, 2025 Billing Provider: GALE FAJARDO MD Common Visit Codes: [id number] INP/OBS CARE(HIGH) GALE FAJARDO MD Mar 23, 2025 09:45
--- NOTE | 2025-03-23 12:19 | DVH ---
XY ANTEGRADE NEPHROSTOGRAM HISTORY: Possible blocked nephrostomy tube COMPARISON: None PROCEDURE: A road worker film was obtained prior to the procedure. For the purposes of performing a tube ch luciano, Omnipaque was administered through the left nephrostomy tube and sequential images were obtained via fluoroscopy. Total fluoroscopy time was 0.5 minutes. FINDINGS: The initial road worker film revealed left nephrostomy tube in place. The contrast injected through the per cutaneous nephrostomy tube is seen entering an amorphous and collapsed renal collecting system that a ppears confined to a renoform shape. IMPRESSION: Antegrade nephrostogram shows an amorphous and collapsed renal collecting system that appears confine d to a renoform shape. Contrast not seen going down ureter. Return of fluid was seen with gentle aspi ration. This could be a nonfunctional kidney, recommend nuclear medicine lasix renogram.
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
[2025-03-23] MEDS: HYDROcodone-ACET 5/325MG TAB ONE (22:57)
[2025-03-24 01:00] VITALS: BP 114/79; PULSE 91; RESP 18; TEMP 97.8; O2SAT 96
[2025-03-24 05:00] VITALS: BP 106/62; PULSE 71; RESP 17; TEMP 97.6; O2SAT 97
[2025-03-24] MEDS: IOHEXOL 300 MG/ML 100ML BOTTLE IJ ONE (07:20)
[2025-03-24 08:36] VITALS: BP 104/70; PULSE 89; RESP 17; TEMP 97.9; O2SAT 96
[2025-03-24] MEDS ORDERED: TRAM-626 PO (09:33)
--- NOTE | 2025-03-24 09:39 | DVHDS2 ---
Discharge Summary Date of Admission Mar 20, 2025 at 23:26 Date of Discharge: Mar 24, 2025 Admitting Diagnosis Possible in bacterial left nephrostomy tube site Wounds: None Labs/Diagnostic Data: Laboratory Results Test 03/22/25 03:42 03/21/25 13:13 03/21/25 06:58 SARS-CoV-2 Antigen (Rapid) Negative (NEGATIVE) Urine Color Brown (Yellow) Urine Clarity Ex.turbid (Clear) Urine pH 7.5 (5.0-9.0) Urine Specific [place] 1.029 (1.001-1.035) Urine Protein 2+ (Negative) Urine Ketones Negative (Negative) Urine Blood 3+ /uL (Negative) Urine Nitrite Negative (Negative) Urine Bilirubin Negative (Negative) Urine Urobilinogen Normal mg/dL (Negative) Urine Leukocyte Esterase 2+ /uL (Negative) Urine RBC 1914 /hpf (0 - 3) Urine WBC Clumps Present /hpf (None Seen) Urine Microscopic WBC 767 /HPF (0-3) Urine Squamous Epithelial Cells Few /hpf (<5) Urine Bacteria None seen /hpf (None Seen) Urine Mucus Few (None Seen) Urine Glucose Normal mg/dL (Normal) White Blood Count 7.8 10^3/uL (4.4-10.8) Red Blood Count 4.67 10^6/uL (4.5-5.90) Hemoglobin 13.7 g/dL (13.5-17.5) Hematocrit 40.3 % (41.0-53.0) Mean Corpuscular Volume 86.3 fL (80.0-100.0) Mean Corpuscular Hemoglobin 29.3 pg (28.0-32.0) Mean Corpuscular Hemoglobin Concent 34.0 g/dL (32.0-36.0) Red Cell Distribution Width 15.7 % (11.8-14.3) Platelet Count 241 10^3/uL (140-450) Mean Platelet Volume 7.3 fL (6.9-10.8) Neutrophils (%) (Auto) 73.1 % (37.0-80.0) Lymphocytes (%) (Auto) 16.8 % (10.0-50.0) Monocytes (%) (Auto) 8.4 % (0.0-12.0) Eosinophils (%) (Auto) 1.4 % (0.0-7.0) Basophils (%) (Auto) 0.3 % (0.0-2.0) Neutrophils # (Auto) 5.7 10 ^3/uL (1.6-8.6) Lymphocytes # (Auto) 1.3 10 ^3/uL (0.4-5.4) Monocytes # (Auto) 0.7 10 ^3/uL (0-1.3) Eosinophils # (Auto) 0.1 10 ^3/uL (0-0.8) Basophils # (Auto) 0 10 ^3/uL (0-0.2) Nucleated Red Blood Cells 0.1 % Sodium Level 139 mmol/L (136-145) Potassium Level 4.2 mmol/L (3.5-5.1) Chloride Level 102 mmol/L (98-107) Carbon Dioxide Level 28 mmol/L (20-31) Anion Gap 9 (5-15) Blood Urea Nitrogen 13 mg/dL (9-23) Creatinine 0.99 mg/dL (0.700-1.30) Glomerular Filtration Rate Calc 84 mL/min (>90) BUN/Creatinine Ratio 13.1 (10.0-20.0) Serum Glucose 94 mg/dL (74-106) Calcium Level 9.9 mg/dL (8.7-10.4) Total Bilirubin 0.6 mg/dL (0.2-1.0) Aspartate Amino Transferase (AST) 25 U/L (13-40) Alanine Aminotransferase (ALT) 41 U/L (7-40) Alkaline Phosphatase 105 U/L (46-116) Total Protein 7.3 g/dL (5.7-8.2) Albumin 4.3 g/dL (3.2-4.8) Other Laboratory Tests 03/21/25 06:58 Brief Hx & Hospital Course: 64-year-old male came in for possible left nephrostomy tube site infection. CT abdomen pelvis without contrast showed minimal hydronephrosis seen by Urology Dr. Mcmillan and the left nephrostomy tube is removed patient feels better asymptomatic and being discharged home he has an appointment with the Urology Dr. Mcmillan for right ESWL as an outpatient Consults/Reason for consult Urology Dr. Mcmillan Operations or Procedures CT abdomen pelvis without contrast Condition at Discharge: Fair Final Diagnosis/Problems List Atrophic left kidney Status post left nephrostomy tube which has been removed Right kidney stones scheduled for ESWL as an outpatient by Dr. Mcmillan Discharge Disposition: Home Discharge Instruct/Medications Diet: Regular Activity: No Restrictions, As Tolerated Follow Up/Referral: Keep your appointment with the Urology Dr. Mcmillan for right ESWL as an outpatient Medications: Tramadol Transmitted to pharmacy Scheduled Tramadol HCl (Tramadol HCl), 50 MG PO QID 39 (Time taken for discharge summary 39 minutes) Discharge Statement: "Patient was advised to return to the ER or call 911 if any headaches, dizziness, shortness of breath, chest pain, abdominal pain, bleeding, fevers, or worsening of medical condition. Patient was counseled about treatment plan, medications, possible side effects, patientverbalized understanding. All questions were answered to the best of my ability. This discharge took greater then 30 minutes in planning, reviewing documentation, counseling the patient, and discussing with other team members." ASSESSMENT ASSESSMENT Hospital Course Resolved Assessment Atrophic left kidney Status post left nephrostomy tube which has been removed Right kidney stones scheduled for ESWL as an outpatient by Dr. Mcmillan Date of Service: Mar 24, 2025 Billing Provider: GALE FAJARDO MD Common Visit Codes: [id number] DISCH DAY >30min GALE FAJARDO MD Mar 24, 2025 09:39
[2025-03-24 12:35] VITALS: BP 100/64; PULSE 80; RESP 17; TEMP 97.9; O2SAT 96
== END 2025-03-24 12:45 | disposition home or self-care (01) | DRG 690 ==
LOC: ER 20:39 → OVERFLOW 23:26 → CENTRAL 23:31
PROVIDERS: ADMIT Family Medicine; ATTEND Family Medicine
PROC: BT121ZZ Fluoroscopy of Left Kidney using Low Osmolar Contrast (ICD-10-PCS; principal; 2025-03-23)
DX: N30.01 Acute cystitis with hematuria (principal); N26.1 Atrophy of kidney (terminal); Z20.822 Contact with and (suspected) exposure to COVID-19; Z87.442 Personal history of urinary calculi; Z79.899 Other long term (current) drug therapy; Y84.8 Other medical procedures as the cause of abnormal reaction of the patient, or of later complication, without mention of misadventure at the time of the procedure; Y92.89 Other specified places as the place of occurrence of the external cause
CPT/HCPCS: 36415; 50431; 74176; 74425; 80048; 80053; 81001; 85025; 87086; 87426; G0378